=== PATIENT | male | born 1995 | race Caucasian/White ===

== ENCOUNTER 2017-12-11 18:53 | Emergency (ER) | payer BC ==
[2017-12-11 19:00] VITALS: BP 135/82
--- NOTE | 2017-12-11 20:50 | ED Physician Documentation ---
PD HPI OPHTHO - Stated complaint Stated Complaint: FB IN EYE - Chief complaint Chief Complaint: Heent - History obtained from History obtained from: Patient - History of Present Illness Timing - onset: Today Timing - duration: Hours (2) Timing - details: Abrupt onset Location: Right Associated symptoms: FB sensation Contributing factors: FB (was grinding metal/rust and a piece got into right eye. He can see it on the eye but it does not come out with washing eye.) Similar symptoms before: Has not had sx before Recently seen: Not recently seen Review of Systems Eyes: denies: Loss of vision, Decreased vision, Photophobia Neurologic: denies: Headache PD PAST MEDICAL HISTORY - Past Medical History Cardiovascular: None Respiratory: None Neuro: None Endocrine/Autoimmune: None GI: None : None HEENT: None Psych: None Musculoskeletal: None Derm: None - Past Surgical History Past Surgical History: Yes General: Other - Present Medications Home Medications: Ambulatory Orders Medication Instructions Recorded Confirmed Sucralfate 1 gm PO ACHS #30 tablet 10/01/16 - Allergies Allergies/Adverse Reactions: Allergies Allergy/AdvReac Type Severity Reaction Status Date / Time No Known Drug Allergies Allergy Verified 12/11/17 19:00 - Social History Does the pt smoke?: No Smoking Status: Never smoker Does the pt drink ETOH?: Yes Does the pt have substance abuse?: Yes - Immunizations Immunizations are current?: Yes - POLST Patient has POLST: No PD ED PE NORMAL - Vitals Vital signs reviewed: Yes - General General: Alert and oriented X 3, No acute distress, Well developed/nourished - HEENT HEENT: PERRL, EOMI PD ED PE EXPANDED - Eyes Eyes: Corneal FB (about the 2 o'clock position at edge of iris. Not in visual axis itself. ), Anterior chambers clear, Normal fundi Results - Vitals Vitals: Oxygen O2 Source Room air Procedures - FB removal FB location: Other (right corneal) FB removal preparation: Other (topical eye drops) Removal method: Other (blunt needle tip) FB removal aftercare: Patient tolerated well PD MEDICAL DECISION MAKING - ED course Complexity details: considered differential, d/w patient Departure - Departure Disposition: 01 Home, Self Care Clinical Impression: Corneal foreign body Qualifiers: Encounter type: initial encounter Laterality: right Qualified Code(s): T15.01XA - Foreign body in cornea, right eye, initial encounter Condition: Stable Record reviewed to determine appropriate education?: Yes Instructions: ED Foreign Body Cornea Comments: It looks like at the entire bit of rust out of there. I do not see any residual staining at this time. Recheck if is not feeling completely better over 12-24 hours. Tylenol or ibuprofen if needed for pains. Recheck if there develops any staining color in that area Discharge Date/Time: 12/11/17 21:27
[2017-12-11] MEDS ORDERED: PROPARACAINE 0.5% OPHTH DROPS 15 ML EACHEYE STA (20:59)
== END 2017-12-11 21:27 | disposition home or self-care (01) ==
LOC: ED 18:53
DX: T15.01XA Foreign body in cornea, right eye, initial encounter (principal); X58.XXXA Exposure to other specified factors, initial encounter
CPT/HCPCS: 65220; 99283; J3490; 99284

== ENCOUNTER 2021-06-19 08:49 | Emergency (ER) | payer BC ==
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
[2021-06-19 09:35] VITALS: BP 129/73
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
[2021-06-19] MEDS ORDERED: DEXAMETHASONE 10 MG/ML VIAL PO STA (10:58)
[2021-06-19] MEDS ORDERED: methocarbamoL 500 MG TABLET PO STA (10:58)
[2021-06-19] MEDS ORDERED: CHERRY SYRUP 10 ML UDC PO ONE (10:58)
[2021-06-19] MEDS ORDERED: ACETAMINOPHEN 325 MG TABLET PO STA (11:00)
== END 2021-06-19 11:16 | disposition home or self-care (01) ==
LOC: ED 08:49
DX: S16.1XXA Strain of muscle, fascia and tendon at neck level, initial encounter (principal); S29.019A Strain of muscle and tendon of unspecified wall of thorax, initial encounter; V49.9XXA Car occupant (driver) (passenger) injured in unspecified traffic accident, initial encounter
CPT/HCPCS: 72125; 72128; 99283; 99284; A9270